=== PATIENT | female | born 1970 | race African-American/Black ===

== ENCOUNTER 2017-05-27 17:10 | Emergency (ER) | payer MEDICAID, SELFPAY ==
[~2017-05-27] VITALS: Ht 154.9 cm; Wt 57.6 kg
[2017-05-27] MEDS ORDERED: NKM (17:22)
[2017-05-27 17:30] VITALS: BP 101/63
[2017-05-27 18:43] LABS: BASOPHILS % (AUTO) 1.5 % (0.0-2.0); EOSINOPHILS % (AUTO) 5.6 % (0.0-3.0); LYMPHOCYTES % (AUTO) 33.7 % (20.0-45.0); MEAN CORPUSCULAR HEMOGLOBIN 26.4 PG (27.0-31.0); MEAN CORPUSCULAR HGB CONC 32.3 G/DL (32.0-36.0); MEAN CORPUSCULAR VOLUME 82 FL (80-99); MEAN PLATELET VOLUME 5.7 FL (6.5-10.1); MONOCYTES % (AUTO) 9.4 % (1.0-10.0); NEUTROPHILS % (AUTO) 49.8 % (45.0-75.0); PLATELET COUNT 284 K/UL (150-450); RED BLOOD COUNT 3.86 M/UL (4.20-5.40); RED CELL DISTRIBUTION WIDTH 15.6 % (11.6-14.8)
[2017-05-27 18:45] LABS: APPEARANCE,URINE SLIGHTLY CLOUDY; KETONES,URINE 1+ (NEGATIVE); LEUKOCYTE ESTERASE ,URINE 3+ (NEGATIVE); NITRITE,URINE NEGATIVE (NEGATIVE); PH,URINE 5 (4.5-8.0); PROTEIN,URINE 1+ (NEGATIVE); UROBILINOGEN,URINE 1 MG/DL (0.0-1.0)
[2017-05-27 18:45] LABS: ALANINE AMINOTRANSFERASE 18 U/L (3-33); ALBUMIN/GLOBULIN RATIO 1.2 (1.0-2.7); ANION GAP 9 (5-15); ASPARTATE AMINO TRANSFERASE 22 U/L (5-40); CARBON DIOXIDE 28 mEQ/L (20-30); CHLORIDE 101 mEQ/L (98-107); CREATININE 0.9 mg/dL (0.5-0.9); GLOMERULAR FILTRATION RATE > 60 mL/min (>60); HEMOLYSIS 4; LIPASE 37 U/L (< 60); POTASSIUM 3.7 mEQ/L (3.4-4.9); SODIUM 138 mEQ/L (135-145); TOTAL PROTEIN 7.3 g/dL (6.6-8.7)
[2017-05-27 18:49] LABS: PROTHROMBIN TIME 10.7 SEC (9.30-11.50)
[2017-05-27 18:55] LABS: BACTERIA,URINE FEW /HPF; SQUAMOUS EPITHELIAL CELL,UR FEW /LPF (NONE/OCC)
[2017-05-27] MEDS ORDERED: NAPROSYN500 M1 ORAL (19:38)
[2017-05-27] MEDS ORDERED: NITROFURANTOIN100 M2 ORAL (19:38)
[2017-05-27 20:00] VITALS: BP 101/63
--- NOTE | 2017-05-27 21:23 | Emergency Room Report ---
History of Present Illness General Chief Complaint: Vaginal Source: Patient Present Illness HPI The patient is a 46 old female with a history of uterine fibroids and iron deficiency anemia presenting for prolonged menstruation. She states that she has been bleeding for the past 20 days. She states that she soaks 8 pads daily. She also admits to an 8/10 dull ache to the pelvic region. Pain does not radiate. No known provoking or relieving factors. She does admit to fatigue and feeling cold. She denies other symptoms including N, V, F, chills, back pain , dysuria, vaginal DC Allergies: Coded Allergies: CODEINE (Unverified Allergy, Unknown, 08/07/14) PENICILLINS (Verified Allergy, Unknown, 05/27/17) Patient History Past Medical History: see triage record Pertinent Family History: none Last Menstrual Period: on period Now: No Reviewed Nursing Documentation: PMH: Agreed, PSxH: Agreed Nursing Documentation-PMH Past Medical History: No History, Except For Hx Cardiac Problems: Yes - Anemia Review of Systems All Other Systems: negative except mentioned in HPI Physical Exam Vital Signs Date Time Temp Pulse Resp B/P (MAP) Pulse Ox O2 Delivery O2 Flow Rate FiO2 05/27/17 17:16 98.2 63 16 101/63 98 Room Air Sp02 EP Interpretation: reviewed, normal General Appearance: no apparent distress, alert, GCS 15, non-toxic Head: normocephalic, atraumatic Eyes: bilateral eye normal inspection, bilateral eye PERRL ENT: hearing grossly normal, normal pharynx, no angioedema, normal voice Neck: full range of motion, supple/symm/no masses Respiratory: chest non-tender, lungs clear, normal breath sounds, speaking full sentences Gastrointestinal: soft, no mass, no guarding, tenderness - suprapubic Rectal: deferred Genitourinary: normal inspection, no CVA tenderness Musculoskeletal: back normal, gait/station normal, normal range of motion, non- tender Neurologic: alert, oriented x3, responsive, motor strength/tone normal, sensory intact, speech normal Psychiatric: judgement/insight normal, memory normal, mood/affect normal, no suicidal/homicidal ideation Skin: normal color, no rash, warm/dry, well hydrated Medical Decision Making PA Attestation Dr. Salcido is my supervising physician. Patient management was discussed with my supervising physician Diagnostic Impression: Primary Impression: Hemorrhagic cyst of right ovary Additional Impressions: Urinary tract infection Qualified Codes: N30.01 - Acute cystitis with hematuria Anemia Qualified Codes: D64.9 - Anemia, unspecified Uterine fibroid Qualified Codes: D25.9 - Leiomyoma of uterus, unspecified ER Course The patient is a 46 old female presenting for vaginal bleeding Differential diagnoses considered but not limited to: Uterine fibroids, hemorrhagic cyst, urinary tract infection, perimenopause, PID, among others Physical exam: No apparent distress Abdomen is soft. There is tenderness to palpation over suprapubic region only. No CVA tenderness CBC shows mild anemia. Otherwise unremarkable UA has signs of infection Pelvis us: R hemorrhagic ovarian cyst, uterine fibroids, and thickened endometrium [facility] and macrobid. She was informed of the findings. ER precautions given Laboratory Tests Test 05/27/17 17:50 05/27/17 18:15 Urine Color Yellow Urine Appearance Slightly cloudy Urine pH 5 (4.5-8.0) Urine Specific [place] 1.020 (1.005-1.035) Urine Protein 1+ (NEGATIVE) H Urine Glucose (UA) Negative (NEGATIVE) Urine Ketones 1+ (NEGATIVE) H Urine Occult Blood 5+ (NEGATIVE) H Urine Nitrite Negative (NEGATIVE) Urine Bilirubin Negative (NEGATIVE) Urine Urobilinogen 1 MG/DL (0.0-1.0) H Urine Leukocyte Esterase 3+ (NEGATIVE) H Urine RBC 10-15 /HPF (0 - 2) H Urine WBC 5-10 /HPF (0 - 2) H Urine Squamous Epithelial Cells Few /LPF (NONE/OCC) Urine Bacteria Few /HPF (NONE) Urine HCG, Qualitative Negative White Blood Count 8.0 K/UL (4.8-10.8) Red Blood Count 3.86 M/UL (4.20-5.40) L Hemoglobin 10.2 G/DL (12.0-16.0) L Hematocrit 31.6 % (37.0-47.0) L Mean Corpuscular Volume 82 FL (80-99) Mean Corpuscular Hemoglobin 26.4 PG (27.0-31.0) L Mean Corpuscular Hemoglobin Concent 32.3 G/DL (32.0-36.0) Red Cell Distribution Width 15.6 % (11.6-14.8) H Platelet Count 284 K/UL (150-450) Mean Platelet Volume 5.7 FL (6.5-10.1) L Neutrophils (%) (Auto) 49.8 % (45.0-75.0) Lymphocytes (%) (Auto) 33.7 % (20.0-45.0) Monocytes (%) (Auto) 9.4 % (1.0-10.0) Eosinophils (%) (Auto) 5.6 % (0.0-3.0) H Basophils (%) (Auto) 1.5 % (0.0-2.0) Prothrombin Time 10.7 SEC (9.30-11.50) Prothrombin Time INR 1.0 (0.9-1.1) PTT 26 SEC (23-33) Sodium Level 138 mEQ/L (135-145) Potassium Level 3.7 mEQ/L (3.4-4.9) Chloride Level 101 mEQ/L (98-107) Carbon Dioxide Level 28 mEQ/L (20-30) Anion Gap 9 (5-15) Blood Urea Nitrogen 11 mg/dL (7-23) Creatinine 0.9 mg/dL (0.5-0.9) Estimate Glomerular Filtration Rate > 60 mL/min (>60) Glucose Level 102 mg/dL (74-106) Calcium Level 9.0 mg/dL (8.6-10.2) Total Bilirubin 0.3 mg/dL (0.0-1.2) Aspartate Amino Transferase (AST) 22 U/L (5-40) Alanine Aminotransferase (ALT) 18 U/L (3-33) Alkaline Phosphatase 83 U/L (35-104) Total Protein 7.3 g/dL (6.6-8.7) Albumin 4.0 g/dL (3.5-5.2) Globulin 3.3 g/dL Albumin/Globulin Ratio 1.2 (1.0-2.7) Lipase 37 U/L (< 60) Lab Results Impression CBC: mild anemia. No leukocytosis CMP: unremarkable UA: 5+ occult blood with leukocyte esterase and WBCs CT/MRI/US Diagnostic Results CT/MRI/US Diagnostic Results : Imaging Test Ordered: Pelvic US Impression R hemorrhagic ovarian cyst, uterine fibroids, and thickened endometrium Last Vital Signs Date Time Temp Pulse Resp B/P (MAP) Pulse Ox O2 Delivery O2 Flow Rate FiO2 05/27/17 20:00 98.2 66 16 101/63 98 Room Air Status: improved Disposition: HOME, SELF-CARE Condition: Improved Scripts Naproxen* (NAPROSYN*) 500 Mg Tablet 500 MG ORAL TWICE A DAY, #14 TAB Prov: RIANA VEGA P.A. 05/27/17 Nitrofurantoin Monohyd/M-Cryst* (MACROBID 100 MG*) 100 Mg Capsule 100 MG ORAL EVERY 12 HOURS, #14 CAP Prov: RIANA VEGA P.A. 05/27/17 Patient Instructions: Uterine Fibroids, Ovarian Cyst, Perimenopause Additional Instructions: I discussed my findings with the patient. All questions and concerns have been answered. Treatment and medication compliance have been addressed. I advised the patient that they need to follow up with PMD in 3-5 days. Return to ED if symptoms worsen, new symptoms arise, or if needed for any reason. Patient verbalized understanding of discharge instructions. RIANA VEGA May 27, 2017 21:23
--- NOTE | 2017-05-28 09:53 | Diagnostic Imaging Report ---
Indication: Pelvic pain, vaginal bleeding for 20 days negative urine test Technique: Transabdominal and transvaginal images Comparison: None Findings: Uterus measures 9.6 cm length by 5.9 cm AP. Endometrium measures is menopausal. Up to 16 Mm thick. Small fluid collection is seen within the endometrium. Calcifications are seen within the endometrium. Small intramural fibroids are demonstrated, largest measuring 3.4 cm in diameter. Right ovary measures 2.9 cm length. Left ovary measures 3.7 cm length, demonstrates a 3 cm cyst. Trace free fluid is seen in the cul-de-sac. Cervical nabothian cysts are incidentally noted. Impression: 16 mm thick endometrium. Endometrial pathology not excludable, particular patient is postmenopausal. Correlate with clinical history and laboratory findings, consider MRI for better characterization Small amount of fluid in the endometrial cavity, may reflect a small amount of blood given stated clinical history 3 cm left ovarian cyst. Most likely a benign functional cyst. 6-8 week followup sonography is recommended for further evaluation Multiple uterine fibroids Trace free cul-de-sac fluid, likely physiologic Incidental finding cervical nabothian cysts
== END 2017-05-27 20:00 | disposition home or self-care (01) ==
LOC: EMR 17:48
DX: N83.201 Unspecified ovarian cyst, right side (principal); N39.0 Urinary tract infection, site not specified; D64.9 Anemia, unspecified; D25.9 Leiomyoma of uterus, unspecified; R93.8 Abnormal findings on diagnostic imaging of other specified body structures; Z88.0 Allergy status to penicillin; Z88.5 Allergy status to narcotic agent
CPT/HCPCS: 36415; 76856; 80053; 81003; 81025; 83690; 85025; 85610; 85730; 86850; 86900; 86901; 96360; 99284